=== PATIENT | male | born 1970 | race Caucasian/White ===

== ENCOUNTER 2020-07-05 16:28 | Emergency (ER) | payer SELFPAY ==
[~2020-07-05] VITALS: Ht 175.3 cm; Wt 100.0 kg
[~2020-07-05 16:28] MED LIST: ANUCORT-HC25 MG RE; NO; NO MEDS; [UNRECOGNIZED DRUG - SUPPLY] RE
[2020-07-05 18:05] LABS: HEMATOCRIT 50.2 % (39.0-50.0); HEMOGLOBIN 15.9 g/dl (14.0-18.0); IMMATURE GRANULOCYTES 0.3 % (0.0-5.0); MEAN CORPUSCULAR HGB 29.8 pG CALC (26.0-32.0); MEAN CORPUSCULAR HGB CONC 31.7 g/dL CAL (32.0-36.0); NEUT# 7.73 thou/uL (1.82-7.42); RED BLOOD COUNT 5.34 mill/uL (4.70-6.10); RED CELL DISTRI WIDTH 13.5 % (11.5-15.5)
[2020-07-05 18:22] LABS: ALBUMIN 4.2 g/dL (3.2-5.0); ALKALINE PHOSPHATASE 77 u/l (38-126); ANION GAP 11 (6-22 (CALC)); BUN 16 mg/dL (9-20); BUN/CREATININE RATIO 22 (12-20 (CALC)); CARBON DIOXIDE 27 mmol/l (22-30); CHLORIDE 102 mmol/l (95-108); CREATININE 0.7 mg/dL (0.7-1.3); GFR > 60 ML/MIN (>=60 (CALC)); GFR FOR AFR.AMER. > 60 ML/MIN (>=60 (CALC)); LIPASE 55 u/l (23-300); POTASSIUM 4.3 mmol/l (3.5-5.1); SGOT/AST 36 u/l (17-59); SODIUM 136 mmol/l (137-146); TOTAL PROTEIN 7.7 g/dL (6.3-8.2)
[2020-07-05 18:37] LABS: BILIRUBIN, TOTAL 1.1 mg/dL (0.0-1.4)
[2020-07-05] MEDS ORDERED: GLIMEPIRIDE2 MG PO (18:39)
[2020-07-05] MEDS ORDERED: METFORMIN HCL1000 MG PO (18:39)
[2020-07-05] MEDS ORDERED: METRONIDAZOL500 MG PO (20:23)
[2020-07-05] MEDS ORDERED: CIPROFLOXACN500 MG PO (20:23)
[2020-07-05 20:37] LABS: URINE BILIRUBIN - DIPSTICK NEGATIVE (NEGATIVE); URINE BLOOD DIPSTICK NEGATIVE (NEGATIVE); URINE COLOR YELLOW; URINE GLUCOSE - DIPSTICK 500 mg/dL (NEGATIVE); URINE KETONE NEGATIVE (NEGATIVE); URINE LEUK ESTERASE NEGATIVE (NEGATIVE); URINE NITRITE - DIPSTICK NEGATIVE (Negative); URINE PH 6.5 (4.5-8.0); URINE PROTEIN - DIPSTICK NEGATIVE (NEG-TRACE); URINE SPECIFIC GRAVITY 1.015
[2020-07-05 20:40] VITALS: BP 122/64
== END 2020-07-05 20:40 | disposition home or self-care (01) | DRG 392 ==
LOC: ED 16:28
DX: K57.32 Diverticulitis of large intestine without perforation or abscess without bleeding (principal); E11.9 Type 2 diabetes mellitus without complications; F17.210 Nicotine dependence, cigarettes, uncomplicated; Z95.0 Presence of cardiac pacemaker
CPT/HCPCS: Q9967

== ENCOUNTER 2022-08-16 16:09 | Emergency (ER) | payer BC ==
[~2022-08-16] VITALS: Ht 175.3 cm; Wt 100.0 kg
[~2022-08-16 16:09] MED LIST changes: +CIPROFLOXACN500 MG PO; +GLIMEPIRIDE2 MG PO; +METFORMIN HCL1000 MG PO; +METRONIDAZOL500 MG PO
[2022-08-16] MEDS ORDERED: ENTRESTO 24-261 TAB (16:25)
[2022-08-16] MEDS ORDERED: FUROSEMIDE20 MG PO (16:26)
[2022-08-16] MEDS ORDERED: JARDIANCE25 MG (16:26)
[2022-08-16] MEDS ORDERED: CLOPIDOGREL75 MG PO (16:26)
[2022-08-16] MEDS ORDERED: COREG12.5 MG PO (16:27)
[2022-08-16] MEDS ORDERED: ROSUVASTATIN CA10 MG (16:28)
[2022-08-16] MEDS ORDERED: POTASSIUM99 MG PO (16:29)
[2022-08-16 16:33] VITALS: BP 101/61
[2022-08-16 16:45] VITALS: BP 97/59
[2022-08-16 17:15] VITALS: BP 104/60
[2022-08-16 17:30] VITALS: BP 100/61
[2022-08-16 17:45] VITALS: BP 113/65
[2022-08-16] MEDS ORDERED: VOLTAREN1%GEL TOP (18:18)
[2022-08-16] MEDS ORDERED: TRAMADOL HYDROC50 M1 PO (18:18)
[2022-08-16 18:25] VITALS: BP 113/65
== END 2022-08-16 18:30 | disposition home or self-care (01) | DRG 556 ==
LOC: ED 16:09
DX: M25.511 Pain in right shoulder (principal); E11.9 Type 2 diabetes mellitus without complications; F17.210 Nicotine dependence, cigarettes, uncomplicated; Z95.0 Presence of cardiac pacemaker; Z79.84 Long term (current) use of oral hypoglycemic drugs

== ENCOUNTER 2023-10-02 19:48 | Emergency (ER) | payer BC ==
[~2023-10-02] VITALS: Ht 175.3 cm; Wt 98.8 kg
[~2023-10-02 19:48] MED LIST changes: +CLOPIDOGREL75 MG PO; +COREG12.5 MG PO; +ENTRESTO 24-261 TAB; +FUROSEMIDE20 MG PO; +JARDIANCE25 MG; +POTASSIUM99 MG PO; +ROSUVASTATIN CA10 MG; +TRAMADOL HYDROC50 M1 PO; +VOLTAREN1%GEL TOP
[2023-10-02 19:55] VITALS: BP 105/58
[2023-10-02 20:00] VITALS: BP 115/61
[2023-10-02 20:31] VITALS: BP 104/68
[2023-10-02 20:45] VITALS: BP 109/63
[2023-10-02 21:00] VITALS: BP 110/69
[2023-10-02 21:30] VITALS: BP 106/62
== END 2023-10-02 21:40 | disposition left against medical advice (07) | DRG 605 ==
LOC: ED 19:48
DX: S51.812A Laceration without foreign body of left forearm, initial encounter (principal); S51.012A Laceration without foreign body of left elbow, initial encounter; S61.512A Laceration without foreign body of left wrist, initial encounter; S61.217A Laceration without foreign body of left little finger without damage to nail, initial encounter; S09.90XA Unspecified injury of head, initial encounter; I11.0 Hypertensive heart disease with heart failure; I50.9 Heart failure, unspecified; E11.9 Type 2 diabetes mellitus without complications; E78.5 Hyperlipidemia, unspecified; F17.200 Nicotine dependence, unspecified, uncomplicated; W10.9XXA Fall (on) (from) unspecified stairs and steps, initial encounter; Y92.009 Unspecified place in unspecified non-institutional (private) residence as the place of occurrence of the external cause; Z95.810 Presence of automatic (implantable) cardiac defibrillator; Z79.02 Long term (current) use of antithrombotics/antiplatelets; Z79.84 Long term (current) use of oral hypoglycemic drugs; Z95.5 Presence of coronary angioplasty implant and graft; Z53.29 Procedure and treatment not carried out because of patient's decision for other reasons